=== PATIENT | male | born 1930 | race Caucasian/White ===

== ENCOUNTER 2017-06-08 14:07 | Emergency (ER) | payer MEDICARE ==
[2017-06-08] MEDS ORDERED: Sodium Chloride 0.9% 1000 ML 1,000 ML IV SCH (14:30)
--- NOTE | 2017-06-08 14:35 | ERPHSYRPT ---
- History of Present Illness Time Seen by Provider: 06/08/17 14:15 Source: patient, family Patient Subjective Stated Complaint: Pt states "I had bloodwork done this morning, Dr. Zuniga ordered it and Dr. Trevino called us and said his potassium was high and to get me to an emergency department. I feel fine." Triage Nursing Assessment: Pt alert and oriented XN 3, skin pwd. Pt ambulates with a slow upright gait, able to speak in clear full sentences. Physician History: CC: high potassium Hx: 87 y/o patient of Dr Galindo. He had potassium draw this AM which was high. Dr Trevino called him to come to ER. He has no unusual symptoms. Making normal urine. Some normal swelling. He is on aldactone and K as well as diuretics. He has chronic renal insuff but never dialysis. No palpitations, chest pain or abd pain. No V/D. Allergies/Adverse Reactions: No Known Drug Allergies Allergy (Unverified 06/08/17 14:24) Home Medications: Allopurinol 300 mg [Zyloprim 300 mg] 300 mg PO DAILY 06/08/17 [History] Atorvastatin Calcium [Lipitor] 10 mg PO DAILY 06/08/17 [History] Carvedilol [Coreg] 6.25 mg PO BID 06/08/17 [History] Clopidogrel Bisulfate [Plavix] 75 mg PO DAILY 06/08/17 [History] Famotidine [Pepcid] 20 mg PO DAILY 06/08/17 [History] Magnesium Oxide 400 mg [Mag-Ox 400] 400 mg PO DAILY 06/08/17 [History] Potassium Bicarbonate/Cit AC [Potassium 25 Meq Tablet Eff] 25 meq PO DAILY 06/08 [History] Quetiapine Fumarate [Seroquel] 50 mg PO DAILY 06/08/17 [History] Rivaroxaban [Xarelto] 10 mg PO DAILY 06/08/17 [History] Spironolactone [Aldactone] 25 mg PO DAILY 06/08/17 [History] Sucralfate 1 gm [Carafate 1 GM] 1 gm PO DAILY 06/08/17 [History] Tamsulosin HCl 0.4 mg [Flomax 0.4 MG] 0.4 mg PO DAILY 06/08/17 [History] Hx Tetanus, Diphtheria Vaccination/Date Given: Yes Hx Influenza Vaccination/Date Given: Yes Hx Pneumococcal Vaccination/Date Given: Yes Immunizations Up to Date: Yes - Review of Systems Constitutional: No Fever, No Chills, No Malaise, No Weakness Eyes: No Symptoms Ears, Nose, & Throat: No Symptoms Respiratory: No Cough, No Dyspnea Cardiac: No Chest Pain, No Palpitations, No Syncope Abdominal/Gastrointestinal: No Abdominal Pain, No Nausea, No Vomiting, No Diarrhea Genitourinary Symptoms: No Dysuria Skin: No Rash Neurological: No Headache All Other Systems: Reviewed and Negative - Past Medical History Pertinent Past Medical History: Yes Neurological History: Dementia ENT History: Cataracts Cardiac History: Coronary Artery Disease, High Cholesterol Respiratory History: COPD Endocrine Medical History: Diabetes Type I Musculoskeletal History: No Pertinent History GI Medical History: No Pertinent History History: Renal Disease Psycho-Social History: No Pertinent History Male Reproductive Disorders: No Pertinent History - Past Surgical History Past Surgical History: Yes Neuro Surgical History: No Pertinent History Cardiac: Cardiac Stent Respiratory: No Pertinent History Gastrointestinal: Cholecystectomy Genitourinary: No Pertinent History Musculoskeletal: No Pertinent History Male Surgical History: No Pertinent History - Social History Smoking Status: Never smoker Exposure to second hand smoke: Yes Drug Use: none Patient Lives Alone: No - Nursing Vital Signs Nursing Vital Signs: Initial Vital Signs Temperature 97.3 F 06/08/17 14:15 Pulse Rate 68 06/08/17 14:15 Respiratory Rate 16 06/08/17 14:15 Blood Pressure 159/83 06/08/17 14:15 O2 Sat by Pulse Oximetry 97 06/08/17 14:15 Pain Scale Pain Intensity 0 - Physical Exam General Appearance: alert Eye Exam: PERRL/EOMI Ears, Nose, Throat Exam: moist mucous membranes Neck Exam: normal inspection, non-tender, supple Respiratory Exam: normal breath sounds Cardiovascular Exam: irregular Gastrointestinal/Abdomen Exam: soft, No tenderness, No distention, No mass, No guarding Extremity Exam: normal inspection, pedal edema Neurologic Exam: alert, oriented x 3, cooperative, sensation nml, No motor deficits Skin Exam: warm, dry, No rash SpO2 Interpretation: normal SpO2: 97 Oxygen Delivery: Room Air - Course Nursing assessment & vital signs reviewed: Yes EKG Interpreted by Me: RATE (63), A-fib, prolonged QT interval (QTc 482), Right Bundle Branch Block Ordered Tests: Active Orders 24 hr Category Date Time Status Escapement Matcher STAT Care 06/08/17 14:24 Active EKG-ER Only STAT Care 06/08/17 14:23 Active IV Insertion STAT Care 06/08/17 14:23 Active BMP Stat Lab 06/08/17 14:35 Completed CBC W DIFF Stat Lab 06/08/17 14:35 Completed Manual Differential NC Stat Lab 06/08/17 14:35 Completed VENOUS BLOOD GAS Urgent Lab 06/08/17 14:38 Completed Respiratory Nebulizer STAT RT 06/08/17 15:54 Active Medication Summary Generic Name Dose Route Start Last Admin Trade Name Freq PRN Reason Stop Dose Admin Sodium Chloride 1,000 mls @ 100 mls/hr 06/08/17 14:30 06/08/17 14:53 Sodium Chloride 0.9% 1000 Ml IV 07/08/17 14:29 100 mls/hr .Q10H NANCY Administration Discontinued Medications Generic Name Dose Route Start Last Admin Trade Name Freq PRN Reason Stop Dose Admin Albuterol Sulfate 2.5 mg 06/08/17 15:54 Proventil 2.5 Mg/3 Ml Neb IH 06/08/17 15:55 STAT ONE Insulin Aspart 5 unit 06/08/17 15:54 Novolog Insulin SQ 06/08/17 15:55 STAT ONE Lab/Rad Data: Laboratory Result Diagrams 06/08/17 14:35 06/08/17 14:35 Laboratory Results 06/08/17 06/08/17 06/08/17 Range/Units 14:38 14:35 14:35 WBC 6.3 (4.0-10.5) K/mm3 RBC 4.43 (4.1-5.6) M/mm3 Hgb 13.0 (12.5-18.0) gm/dl Hct 41.0 L (42-50) % MCV 92.6 (78-100) fl MCH 29.3 (26-32) pg MCHC 31.7 L (32-36) g/dl RDW 17.3 H (11.5-14.0) % Plt Count 179 (150-450) K/mm3 MPV 11.3 H (6-9.5) fl Segmented Neutrophils 57 (36.-66.) % Band Neutrophils 2 (0.0-2.0) % Lymphocytes (Manual) 32 (24-44) % Monocytes (Manual) 6 (0.0-12.0) % Eosinophils (Manual) 3 (0.00-3.0) % Differential Comment ABNORMAL Platelet Estimate NORMAL (NORMAL) Poikilocytosis 1+ Anisocytosis 1+ VBG pH 7.37 (7.32-7.42) VBG pCO2 at Pat Temp 35 L (42-55) mm/Hg VBG pO2 at Pat Temp 44 H (25-40) mm/Hg VBG HCO3 20.2 L (22-28) meq/L VBG O2 Sat (Raquel) 86.1 L (95-100) VBG Base Excess -4.4 L (-2.0-2.0) VBG Hemoglobin 13.9 VBG Carboxyhemoglobin 2.9 (0.0-6.9) % T HGB POC Potassium 6.1 H* (3.5-5.1) Sodium 136 (136-145) mEq/L Potassium 5.9 H (3.5-5.1) mEq/L Chloride 105 (98-107) mEq/L Carbon Dioxide 20.9 L (21-32) mEq/L Anion Gap 15.6 H (5-15) MEQ/L BUN 37 H (9-20) mg/dL Creatinine 2.21 H (0.55-1.30) mg/dl Estimated GFR 30 ML/MIN Glucose 219 H (70-110) MG/DL Calcium 9.3 (8.5-10.1) mg/dL - Progress Progress Note: 06/08/17 15:57 He is now taking K 2 tabs BID as well as aldactone. He has no symptoms or complaints. Called Dr Trevino for Nav[facility]. HE advised hold K today and tomorrow and restart 1 tab daily Saturday. Will follow up check thru office M or T. Pt and agree and understand plan. Albuterol and Novolog given here. K was down to 5.9 with no acute EKG changes. Counseled pt/family regarding: lab results, diagnosis, need for follow-up - Departure Time of Disposition: 15:59 Departure Disposition: Home Clinical Impression: Hyperkalemia Condition: Fair Critical Care Time: No Referrals: MILY DUGGAN MD [Primary Care Provider] - JELENA SETHI [CONSULTING PHYSICIAN] - Instructions: Hyperkalemia Additional Instructions: Hold potassium today and tomorrow. Saturday restart one 20Meq pill daily Potassium daily. Call Dr Sethi to arrange recheck Saturday or Saturday. Return for problems or concerns.
[2017-06-08] MEDS ORDERED: Sodium Chloride 0.9% 1000 ML 1,000 ML ONE (14:43)
[2017-06-08 14:54] LABS: VBG BASE EXCESS -4.4 (-2.0-2.0); VBG CARBOXYHEMOGLOBIN 2.9 % T HGB (0.0-6.9); VBG HCO3- 20.2 meq/L (22-28); VBG HEMOGLOBIN 13.9; VBG O2 SATURATION 86.1 (95-100); VBG pH 7.37 (7.32-7.42)
[2017-06-08 14:55] LABS: VBG POTASSIUM 6.1 (3.5-5.1)
[2017-06-08 15:13] LABS: Granulocyte Absolute (ANC) 3.45 (1.4-6.9); Mean Cell Volume 92.6 fl (78-100); Mean Corpuscular Hemoglobin 29.3 pg (26-32); Mean Corpuscular Hgb Concent. 31.7 g/dl (32-36); Mean Platelet Volume 11.3 fl (6-9.5); Platelet Count 179 K/mm3 (150-450); Red Blood Count 4.43 M/mm3 (4.1-5.6); Red Cell Distribution Width 17.3 % (11.5-14.0); White Blood Count 6.3 K/mm3 (4.0-10.5)
[2017-06-08 15:22] LABS: ANION GAP 15.6 MEQ/L (5-15); Calcium 9.3 mg/dL (8.5-10.1); Carbon Dioxide 20.9 mEq/L (21-32); Creatinine 1 2.21 mg/dl (0.55-1.30); Potassium 5.9 mEq/L (3.5-5.1)
[2017-06-08 15:43] LABS: ANISOCYTOSIS 1+; BAND 2 % (0.0-2.0); Eosinophil 3 % (0.00-3.0); Lymphocytes 32 % (24-44); Monocyte 6 % (0.0-12.0); Neutrophils 57 % (36.-66.); Platelet Estimate NORMAL (NORMAL); Poikilocytosis 1+; Total Cells Counted 100
[2017-06-08] MEDS ORDERED: NovoLOG Insulin SQ ONE (15:54)
[2017-06-08] MEDS ORDERED: PROVENTIL 2.5 MG/3 ML NEB IH ONE ×2 (15:54→15:59)
[2017-06-08 16:31] VITALS: O2SAT 95
[2017-06-08] MEDS ORDERED: NovoLOG Insulin ONE (17:20)
[2017-06-08 17:30] VITALS: BP 139/45; PULSE 60
== END 2017-06-08 17:30 | disposition home or self-care (01) ==
LOC: ED 14:07
DX: E87.5 Hyperkalemia (principal); I48.91 Unspecified atrial fibrillation; I45.10 Unspecified right bundle-branch block; N18.9 Chronic kidney disease, unspecified; Z79.01 Long term (current) use of anticoagulants
CPT/HCPCS: 36000; 36415; 80048; 82805; 85025; 93005; 93041; 94640; 96360; 96361; 99284; A9270-GY

== ENCOUNTER 2018-11-05 12:24 | Emergency (ER) | payer MEDICARE ==
--- NOTE | 2018-11-05 12:54 | ERPHSYRPT ---
- History of Present Illness Time Seen by Provider: 11/05/18 12:42 Source: patient Patient Subjective Stated Complaint: pt arrived per wc able to pivot to bed, co pain to outer ascept of ankle. no swelling, strong pedal pulse, pt denies any other co's at persent time, Triage Nursing Assessment: pt here for left ankle pain since saturday, he states she gets weak and falls occassionaly,he states he now has left ankle pain, he states he is unalbe to bear full wt, pt wants said he was having chest pain , pt deines any chest pain today and does not want heart checked out, he states that was only after he fell trying to get up, he is adiment thay he does not want heart checked out, and states he has no chest pain Physician History: 88-year-old white male with history of dementia, cataracts, diabetes type 1, COPD, coronary artery disease, myocardial infarction, hyperlipidemia and renal disease. Patient arrives with complaint of pain in his left ankle symptoms for 2 days he states he fell 2 days ago. He has pain in his left ankle worse when he puts any weight on the left ankle his also states that he had some chest pain he states that last night and today on using his walker and he got short of breath and exerted himself he started having some anterior chest pain he does not have any pain at this time in his chest. He does gets short of breath with exertion. Patient is on xaralto and low-dose aspirin he is taking both of these this morning. Past medical history includes dementia, cataracts, diabetes type 1, COPD, coronary artery disease, myocardial infarction, hyperlipidemia, renal disease Past surgical history includes cataracts, cardiac stent, cholecystectomy Social history patient denies tobacco alcohol or illicit drug use Timing/Duration: other (pain in left ankle since Saturday, chest pain last night and this am. No pain now) Severity: moderate Modifying Factors: Improves With: other (pain with walking on left ankle) Associated Symptoms: shortness of breath (Short of breath with activity), chest pain (Chest pain last night and this morning with activity( using walker)), No nausea, No vomiting, No abdominal pain, No heartburn, No diaphoresis, No cough, No chills, No fever, No headaches, No loss of appetite, No malaise, No rash, No syncope, No weakness Allergies/Adverse Reactions: No Known Drug Allergies Allergy (Verified 11/05/18 12:26) Home Medications: Allopurinol 300 mg [Zyloprim 300 mg] 300 mg PO DAILY 06/08/17 [History] Atorvastatin Calcium [Lipitor] 10 mg PO DAILY 06/08/17 [History] Carvedilol [Coreg] 6.25 mg PO BID 06/08/17 [History] Clopidogrel Bisulfate [Plavix] 75 mg PO DAILY 06/08/17 [History] Famotidine [Pepcid] 20 mg PO DAILY 06/08/17 [History] Magnesium Oxide 400 mg [Mag-Ox 400] 400 mg PO DAILY 06/08/17 [History] Potassium Bicarbonate/Cit AC [Potassium 25 Meq Tablet Eff] 25 meq PO DAILY 06/08 [History] Quetiapine Fumarate [Seroquel] 50 mg PO DAILY 06/08/17 [History] Rivaroxaban [Xarelto] 10 mg PO DAILY 06/08/17 [History] Spironolactone [Aldactone] 25 mg PO DAILY 06/08/17 [History] Sucralfate 1 gm [Carafate 1 GM] 1 gm PO DAILY 06/08/17 [History] Tamsulosin HCl 0.4 mg [Flomax 0.4 MG] 0.4 mg PO DAILY 06/08/17 [History] Hx Tetanus, Diphtheria Vaccination/Date Given: No Hx Influenza Vaccination/Date Given: Yes Hx Pneumococcal Vaccination/Date Given: Yes Immunizations Up to Date: Yes - Review of Systems Constitutional: No Fever, No Chills Eyes: No Symptoms Ears, Nose, & Throat: No Symptoms Respiratory: Dyspnea on Exertion (FARFAN), No Cough, No Dyspnea Cardiac: Chest Pain Abdominal/Gastrointestinal: No Abdominal Pain, No Nausea, No Vomiting, No Diarrhea Genitourinary Symptoms: No Dysuria Musculoskeletal: Other (left ankle pain) Skin: No Rash Neurological: No Dizziness, No Focal Weakness, No Sensory Changes Psychological: No Symptoms (she does) Endocrine: No Symptoms All Other Systems: Reviewed and Negative - Past Medical History Pertinent Past Medical History: Yes Neurological History: Dementia ENT History: Cataracts Cardiac History: Coronary Artery Disease, High Cholesterol Respiratory History: COPD Endocrine Medical History: Diabetes Type I Musculoskeletal History: No Pertinent History GI Medical History: No Pertinent History History: Renal Disease Psycho-Social History: No Pertinent History Male Reproductive Disorders: No Pertinent History - Past Surgical History Past Surgical History: Yes Neuro Surgical History: No Pertinent History Cardiac: Cardiac Stent Respiratory: No Pertinent History Gastrointestinal: Cholecystectomy Genitourinary: No Pertinent History Musculoskeletal: No Pertinent History Male Surgical History: No Pertinent History - Social History Smoking Status: Never smoker Exposure to second hand smoke: No Drug Use: none Patient Lives Alone: Yes - Nursing Vital Signs Nursing Vital Signs: Initial Vital Signs Temperature 98.5 F 11/05/18 12:29 Pulse Rate 72 11/05/18 12:29 Respiratory Rate 18 11/05/18 12:29 Blood Pressure 112/66 11/05/18 12:29 O2 Sat by Pulse Oximetry 96 11/05/18 12:29 Pain Scale Pain Intensity 2 - Physical Exam General Appearance: no apparent distress, alert Eye Exam: PERRL/EOMI, eyes nml inspection Ears, Nose, Throat Exam: normal ENT inspection, TMs normal, pharynx normal, moist mucous membranes Neck Exam: normal inspection, non-tender, supple, full range of motion Respiratory Exam: normal breath sounds, lungs clear, No respiratory distress Cardiovascular Exam: regular rate/rhythm, normal heart sounds, normal peripheral pulses, capillary refill <2 sec Gastrointestinal/Abdomen Exam: soft, normal bowel sounds, No tenderness, No mass Back Exam: normal inspection, normal range of motion, No CVA tenderness, No vertebral tenderness Extremity Exam: normal range of motion, pelvis stable, other (pain with movement left ankle) Neurologic Exam: alert, oriented x 3, cooperative, shipmaster II-XII nml as tested, normal mood/affect, nml cerebellar function, nml station & gait, sensation nml, No motor deficits Skin Exam: normal color, warm, dry, No rash Lymphatic Exam: No adenopathy SpO2 Interpretation: normal (96%) SpO2: 96 - Course Nursing assessment & vital signs reviewed: Yes EKG Interpreted by Me: RATE (58 bpm), A-fib, Right Bundle Branch Block, Other ( EKG: Atrial fibrillation, 58 beats per minute, normal axis, complete right bundle block no acute ST or T wave changes. compared to June 08, 2017) - Radiology Exams Left Ankle X-ray Interpretation: Discussed w/ radiologist (x-ray left ankle: lateral soft tissue swelling, small heel spurs, and a few scattered vascular calcifications. No other bony, articular, or soft tissue abnormalities) Chest X-ray Interpretation: Discussed w/ radiologist (chest x-ray: Impression 1. Limited portable 2.new rright infrahilar infiltrate/atelectasis correlate clinically. 3 Stable cardiomegaly and evidence for old granulomatous disease) Ordered Tests: Active Orders 24 hr Category Date Time Status EKG-ER Only STAT Care 11/05/18 12:47 Active IV Insertion STAT Care 11/05/18 12:47 Active Pulse Oximetry (ED) STAT Care 11/05/18 12:47 Active Splint STAT Care 11/05/18 14:34 Active ANKLE (3 VIEWS) Stat Exams 11/05/18 12:48 Completed CHEST 1 VIEW (PORTABLE) Stat Exams 11/05/18 12:48 Completed CBC W DIFF Stat Lab 11/05/18 13:40 Completed CMP Stat Lab 11/05/18 13:40 Completed TROPONIN Q3H Lab 11/05/18 13:40 Completed TROPONIN Q3H Lab 11/05/18 16:00 Ordered TROPONIN Q3H Lab 11/05/18 19:00 Ordered TROPONIN Q3H Lab 11/05/18 22:00 Ordered TROPONIN Q3H Lab 11/06/18 01:00 Ordered Medication Summary Discontinued Medications Generic Name Dose Route Start Last Admin Trade Name Freq PRN Reason Stop Dose Admin Morphine Sulfate 2 mg 11/05/18 14:33 Morphine Sulfate 2 Mg Inj IV 11/05/18 14:34 STAT ONE Lab/Rad Data: Laboratory Result Diagrams 11/05/18 13:40 11/05/18 13:40 Laboratory Results 11/05/18 11/05/18 11/05/18 Range/Units 13:40 13:40 13:40 WBC 9.5 (4.0-10.5) K/mm3 RBC 3.93 L (4.1-5.6) M/mm3 Hgb 12.2 L (12.5-18.0) gm/dl Hct 38.5 L (42-50) % MCV 98.0 (78-100) fl MCH 31.0 (26-32) pg MCHC 31.7 L (32-36) g/dl RDW 17.3 H (11.5-14.0) % Plt Count 166 (150-450) K/mm3 MPV 11.1 H (6-9.5) fl Gran % 69.7 H (36.0-66.0) % Eos # (Auto) 0.35 (0-0.5) Absolute Lymphs (auto) 1.52 (1.0-4.6) Absolute Monos (auto) 0.97 (0.0-1.3) Lymphocytes % 15.9 L (24.0-44.0) % Monocytes % 10.2 (0.0-12.0) % Eosinophils % 3.7 (0.00-5.0) % Basophils % 0.5 (0.0-0.4) % Absolute Granulocytes 6.64 (1.4-6.9) Basophils # 0.05 (0-0.4) Sodium 141 (137-145) mmol/L Potassium 4.7 (3.5-5.1) mmol/L Chloride 106 (98-107) mmol/L Carbon Dioxide 24 (22-30) mmol/L Anion Gap 16.3 H (5-15) MEQ/L BUN 46 H (9-20) mg/dL Creatinine 1.72 H (0.66-1.25) mg/dL Estimated GFR 40.3 ML/MIN Glucose 194 H (74-106) mg/dL Calcium 9.6 (8.4-10.2) mg/dL Total Bilirubin 1.00 (0.2-1.3) mg/dL AST 24 (17-59) U/L ALT 17 (0-50) U/L Alkaline Phosphatase 101 (38-126) U/L Troponin I 0.042 H* (0.000-0.034) ng/mL Serum Total Protein 7.3 (6.3-8.2) g/dL Albumin 3.8 (3.5-5.0) g/dL - Progress Progress: improved Progress Note: 11/05/18 14:24 Patient's troponin is elevated, X-ray left ankle no fracture positive soft tissue swelling. Patient did receive aspirin 81 mg this morning also Zaroxolyn 10 mg this morning. Will contact [facility] for possible transfer. Impression 1 chest pain. 2. Left ankle sprain. 11/05/18 14:34 Patient has been on her except did for transfer to [facility]. Impression 1 chest pain. 2 elevated troponin. 3. Left ankle sprain. 11/05/18 14:40 - Departure Departure Disposition: Transfer ([facility]) Clinical Impression: Elevated troponin Chest pain Qualifiers: Chest pain type: unspecified Qualified Code(s): R07.9 - Chest pain, unspecified Left ankle sprain Qualifiers: Encounter type: initial encounter Involved ligament of ankle: unspecified ligament Qualified Code(s): S93.402A - Sprain of unspecified ligament of left ankle, initial encounter Condition: Fair Critical Care Time: No Referrals: MILY DUGGAN MD [ACTIVE STAFF] -
--- NOTE | 2018-11-05 13:15 | XRAY ---
Indication: Pain following fall. Comparison: None 3 views of the left ankle demonstrates lateral soft tissue swelling, small heel spurs, and diffuse scattered vascular calcifications. No other bony, articular, or soft tissue abnormalities.
--- NOTE | 2018-11-05 13:18 | XRAY ---
Indication: Chest pain on exertion. Comparison: October 01, 2016. Portable chest limited as the left lung base not completely included in the [id number]. New right infrahilar infiltrate versus atelectasis. Remaining lungs clear. Stable cardiomegaly and chunky AP window calcified nodes. Bony thorax again demonstrates osteopenia and degenerative changes. Impression: 1. Limited portable chest exam. 2. New right infrahilar infiltrate/atelectasis. Correlate clinically. 3. Stable cardiomegaly and evidence for old granulomatous disease.
[2018-11-05 13:52] LABS: BASOPHIL % 0.5 % (0.0-0.4); Basophil (Absolute #) 0.05 (0-0.4); Eosinophil % 3.7 % (0.00-5.0); Eosinophil (Absolute #) 0.35 (0-0.5); Granulocyte Absolute (ANC) 6.64 (1.4-6.9); Granulocytes % 69.7 % (36.0-66.0); Hematocrit 38.5 % (42-50); Hemoglobin 12.2 gm/dl (12.5-18.0); Lymphocyte (Absolute #) 1.52 (1.0-4.6); Lymphocytes % 15.9 % (24.0-44.0); Mean Corpuscular Hgb Concent. 31.7 g/dl (32-36); Mean Platelet Volume 11.1 fl (6-9.5); Monocyte (Absolute #) 0.97 (0.0-1.3); Monocytes % 10.2 % (0.0-12.0); Platelet Count 166 K/mm3 (150-450); Red Blood Count 3.93 M/mm3 (4.1-5.6); Red Cell Distribution Width 17.3 % (11.5-14.0); White Blood Count 9.5 K/mm3 (4.0-10.5)
[2018-11-05 14:06] LABS: ALBUMIN 3.8 g/dL (3.5-5.0); ANION GAP 16.3 MEQ/L (5-15); Calcium 9.6 mg/dL (8.4-10.2); Creatinine 1 1.72 mg/dL (0.66-1.25); Potassium 4.7 mmol/L (3.5-5.1); Total Protein 7.3 g/dL (6.3-8.2)
[2018-11-05 14:18] VITALS: BP 131/57
[2018-11-05] MEDS ORDERED: MORPHINE SULFATE 2 MG INJ IV ONE (14:33)
[2018-11-05 15:32] VITALS: PULSE 68; O2SAT 98
[2018-11-05] MEDS ORDERED: MORPHINE SULFATE 2 MG INJ ONE (15:34)
== END 2018-11-05 15:32 | disposition short-term general hospital (02) ==
LOC: ED 12:24
DX: R94.39 Abnormal result of other cardiovascular function study (principal); R07.9 Chest pain, unspecified; S93.402A Sprain of unspecified ligament of left ankle, initial encounter; R07.89 Other chest pain; E78.5 Hyperlipidemia, unspecified; Z79.01 Long term (current) use of anticoagulants; J44.1 Chronic obstructive pulmonary disease with (acute) exacerbation; I25.10 Atherosclerotic heart disease of native coronary artery without angina pectoris; Z79.899 Other long term (current) drug therapy; E78.00 Pure hypercholesterolemia, unspecified
CPT/HCPCS: 36000; 36415; 71045; 73610; 80053; 84484; 85025; 93005; 99285; J2270

== ENCOUNTER 2019-05-11 15:26 | Emergency (ER) | payer MEDICARE ==
[2019-05-11] MEDS ORDERED: MORPHINE SULFATE 4 MG INJ IM ONE (15:37)
[2019-05-11] MEDS ORDERED: MORPHINE SULFATE 4 MG INJ ONE (15:46)
--- NOTE | 2019-05-11 16:00 | ERPHSYRPT ---
- History of Present Illness Time Seen by Provider: 05/11/19 15:40 Source: patient Exam Limitations: no limitations Patient Subjective Stated Complaint: Pt states "I was walking out front to get some labs done and my legs just gave way and I fell and hurt my arm. My legs just give out sometimes." Triage Nursing Assessment: Pt presented alert and oriented X 3, skin pwd Pt ambulates with an upright steady gait, able to speak in clear full sentences pt in no apprent respiratory distress. Physician History: Fell walking into hospital laboratory, injury his right shoulder. Now with severe pain at the right shoulder only. He denies any head injury or neck injury, loss of consciousness, or any pain to right elbow, right wrist, or right hand and fingers. No pain at the left shoulder or upper extremity. Occurred: just prior to arrival Reason for Fall: tripped Injuries/Pain Location: upper extremity (right side only) Loss of Consciousness: no loss of consciousness Quality: aching, throbbing Severity of Pain-Max: severe Severity of Pain-Current: severe Modifying Factors: Improves With: immobilization. Worsens With: movement Associated Symptoms (Fall): No abdominal pain, No back pain, No confusion, No chest pain, No dizziness, No extremity injury, No headache, No lightheadedness, No muscle spasms, No nausea, No neck pain, No ringing in ears, No seizures, No shortness of breath, No slurred speech, No vomiting, No vision changes Allergies/Adverse Reactions: No Known Drug Allergies Allergy (Verified 11/05/18 12:26) Home Medications: Allopurinol 300 mg [Zyloprim 300 mg] 300 mg PO DAILY 06/08/17 [History] Atorvastatin Calcium [Lipitor] 10 mg PO DAILY 06/08/17 [History] Carvedilol [Coreg] 6.25 mg PO BID 06/08/17 [History] Famotidine [Pepcid] 20 mg PO DAILY 06/08/17 [History] Magnesium Oxide 400 mg [Mag-Ox 400] 400 mg PO DAILY 06/08/17 [History] Potassium Bicarbonate/Cit AC [Potassium 25 Meq Tablet Eff] 25 meq PO DAILY 06/08 [History] Quetiapine Fumarate [Seroquel] 50 mg PO DAILY 06/08/17 [History] Rivaroxaban [Xarelto] 10 mg PO DAILY 06/08/17 [History] Spironolactone [Aldactone] 25 mg PO DAILY 06/08/17 [History] Sucralfate 1 gm [Carafate 1 GM] 1 gm PO DAILY 06/08/17 [History] Tamsulosin HCl 0.4 mg [Flomax 0.4 MG] 0.4 mg PO DAILY 06/08/17 [History] Hx Tetanus, Diphtheria Vaccination/Date Given: Yes Hx Influenza Vaccination/Date Given: Yes Hx Pneumococcal Vaccination/Date Given: Yes Immunizations Up to Date: Yes - Review of Systems Constitutional: No Fever, No Chills Eyes: No Eye Pain, No Tearing, No Vision Changes Ears, Nose, & Throat: No Nose Pain, No Epistaxis, No Mouth Swelling, No Loose Teeth, No Painful Swallowing Respiratory: No Cough, No Dyspnea Cardiac: No Chest Pain, No Edema, No Syncope Abdominal/Gastrointestinal: No Abdominal Pain, No Nausea, No Vomiting, No Diarrhea, No Hematemesis, No Hematochezia, No Melena Genitourinary Symptoms: No Dysuria, No Hematuria, No Flank Pain Musculoskeletal: Fall, Joint Pain (right shoulder only), No Back Pain, No Neck Pain Skin: No Rash Neurological: No Dizziness, No Focal Weakness, No Headache, No Parasthesia, No Seizure, No Sensory Changes, No Tremors Psychological: No Symptoms Endocrine: No Symptoms All Other Systems: Reviewed and Negative - Past Medical History Pertinent Past Medical History: Yes Neurological History: Dementia ENT History: Cataracts Cardiac History: Coronary Artery Disease, High Cholesterol Respiratory History: COPD Endocrine Medical History: Diabetes Type I Musculoskeletal History: No Pertinent History GI Medical History: No Pertinent History History: Renal Disease Psycho-Social History: No Pertinent History Male Reproductive Disorders: No Pertinent History - Past Surgical History Past Surgical History: Yes Neuro Surgical History: No Pertinent History Cardiac: Cardiac Stent Respiratory: No Pertinent History Gastrointestinal: Cholecystectomy Genitourinary: No Pertinent History Musculoskeletal: No Pertinent History Male Surgical History: No Pertinent History - Social History Smoking Status: Never smoker Exposure to second hand smoke: Yes Drug Use: none Patient Lives Alone: No - Nursing Vital Signs Nursing Vital Signs: Initial Vital Signs Temperature 98.2 F 05/11/19 15:27 Pulse Rate 62 05/11/19 15:27 Respiratory Rate 22 05/11/19 15:27 Blood Pressure 130/68 05/11/19 15:27 O2 Sat by Pulse Oximetry 95 05/11/19 15:27 Pain Scale Pain Intensity 8 - Purchase Coma Score Best Eye Response (Nathan): (4) open spontaneously Best Verbal Response (Nathan): (5) oriented Best Motor Response (Purchase): (6) obeys commands Nathan Total: 15 - Physical Exam General Appearance: no apparent distress, alert Head Injury: no evidence of injury, No active bleeding, No Babin's Sign, No contusions, No ecchymosis, No flap, No lacerations, No raccoon eyes, No swelling , No tenderness Eye Exam: PERRL/EOMI, eyes nml inspection, No scleral icterus, No pale conjunctivae ENT Exam: airway nml, hearing grossly normal, No evidence of ENT injury, No dental injury, No nml ext.inspection, No clear fluid (ears), No clear fluid ( nose), No midface instability, No decreased hearing, No hemotympanum, No TM obscured by wax, No clotted nasal blood, No malocclusion, No oral injury Neck Exam: supple, trachea midline, full range of motion, normal alignment, normal inspection, No limited range of motion, No paraspinous muscle tender, No pain on movement of neck, No stiff neck, No tenderness, No Brudzinski Respiratory/Chest Exam: normal breath sounds, No chest tenderness, No respiratory distress, No rales, No rhonchi, No wheezing, No accessory muscle use Cardiovascular Exam: normal heart sounds, regular rate/rhythm, normal peripheral pulses Gastrointestinal Exam: soft, No tenderness, No distention, No guarding, No ecchymosis, No pulsatile mass, No rebound Back Exam: normal inspection, No CVA tenderness, No vertebral tenderness Extremity Exam: normal inspection, normal range of motion, capillary refill <3 sec, pelvis stable, limited range of motion (right shoulder only), pain with movement (right shoulder only), tenderness (right shoulder only), No deformities , No lacerations, No hip tenderness, No motor deficit, No sensory deficit Neurologic Exam: alert, oriented x 3, cooperative, cut file clerk II-XII nml as tested, normal mood/affect, sensation nml, No motor deficits Skin Exam: normal color, warm, dry SpO2 Interpretation: normal SpO2: 95 O2 Delivery: Room Air - Course Nursing assessment & vital signs reviewed: Yes - Radiology Exams Right Shoulder X-ray Interpretation: Interpreted by me, Reviewed by me, Other (Per Radiolgist Interpretation: muscle mildly overriding oblique fracture of the proximal right humeral shaft with lateral displacement measuring 2.2 cm on the AP and internal rotation view. No malalignment seen on the AP images. There is no dislocation of the right shoulder joint. moderate degenerative changes are seen about the right shoulder girdle at the right glenohumeral joint. ) - CT Exams Head CT Interpretation: Tele-radiologist Report, No Fracture, No/Intracranial Hemorrhag, Other (Per Radiologist Interpretation: nno acute intracranial injury with no sense of mass, hemorrhage, ventriculomegaly, paranasal sinus disease, mastoid effusion. Upper left posterior lateral scalp swelling.) Ordered Tests: Active Orders 24 hr Category Date Time Status ACCUCHECK [Accucheck] STAT Care 05/11/19 16:01 Active Sling Application STAT Care 05/11/19 16:55 Active HEAD WITHOUT CONTRAST [CT] Stat Exams 05/11/19 17:20 Taken SHOULDER Stat Exams 05/11/19 16:00 Completed CBC Stat Lab 05/11/19 15:37 Completed CMP Stat Lab 05/11/19 16:00 Completed CREATININE,URINE RANDOM Stat Lab 05/11/19 Uncollected MICROALBUMIN,RANDOM Stat Lab 05/11/19 Ordered UA W/RFX UR CULTURE Stat Lab 05/11/19 15:39 Uncollected Uric Acid Stat Lab 05/11/19 16:00 Completed Medication Summary Discontinued Medications Generic Name Dose Route Start Last Admin Trade Name Freq PRN Reason Stop Dose Admin Morphine Sulfate 4 mg 05/11/19 15:37 05/11/19 15:47 Morphine Sulfate 4 Mg Inj IM 05/11/19 15:38 4 mg STAT ONE Administration Morphine Sulfate Confirm 05/11/19 15:46 Morphine Sulfate 4 Mg Inj Administered 05/11/19 15:47 Dose 4 mg .ROUTE .STK-MED ONE Ondansetron HCl 4 mg 05/11/19 17:58 05/11/19 18:00 Zofran Odt 4 Mg PO 05/11/19 17:59 4 mg STAT ONE Administration Ondansetron HCl Confirm 05/11/19 17:59 Zofran Odt 4 Mg Administered 05/11/19 18:00 Dose 4 mg .ROUTE .STK-MED ONE Lab/Rad Data: Laboratory Result Diagrams 05/11/19 15:37 05/11/19 16:00 Laboratory Results 05/11/19 05/11/19 05/11/19 Range/Units Unknown 16:00 16:00 WBC (4.0-10.5) K/mm3 RBC (4.1-5.6) M/mm3 Hgb (12.5-18.0) gm/dl Hct (42-50) % MCV (78-100) fl MCH (26-32) pg MCHC (32-36) g/dl RDW (11.5-14.0) % Plt Count (150-450) K/mm3 MPV (6-9.5) fl Sodium 142 (137-145) mmol/L Potassium 5.9 H (3.5-5.1) mmol/L Chloride 108 H (98-107) mmol/L Carbon Dioxide 24 (22-30) mmol/L Anion Gap 15.5 H (5-15) MEQ/L BUN 45 H (9-20) mg/dL Creatinine 2.21 H (0.66-1.25) mg/dL Estimated GFR 30.1 ML/MIN Glucose 140 H (74-106) mg/dL Uric Acid 5.4 (3.5-7.2) mg/dL Calcium 9.6 (8.4-10.2) mg/dL Total Bilirubin 0.70 (0.2-1.3) mg/dL AST 22 (17-59) U/L ALT 13 (0-50) U/L Alkaline Phosphatase 131 H (38-126) U/L Serum Total Protein 7.6 (6.3-8.2) g/dL Albumin 3.9 (3.5-5.0) g/dL 25-OH Vitamin D Total 43.0 (30-100) ng/mL 05/11/19 Range/Units 15:37 WBC 7.0 (4.0-10.5) K/mm3 RBC 3.80 L (4.1-5.6) M/mm3 Hgb 11.4 L (12.5-18.0) gm/dl Hct 37.6 L (42-50) % MCV 98.9 (78-100) fl MCH 30.0 (26-32) pg MCHC 30.3 L (32-36) g/dl RDW 18.2 H (11.5-14.0) % Plt Count 145 L (150-450) K/mm3 MPV 11.5 H (6-9.5) fl Sodium (137-145) mmol/L Potassium (3.5-5.1) mmol/L Chloride (98-107) mmol/L Carbon Dioxide (22-30) mmol/L Anion Gap (5-15) MEQ/L BUN (9-20) mg/dL Creatinine (0.66-1.25) mg/dL Estimated GFR ML/MIN Glucose (74-106) mg/dL Uric Acid (3.5-7.2) mg/dL Calcium (8.4-10.2) mg/dL Total Bilirubin (0.2-1.3) mg/dL AST (17-59) U/L ALT (0-50) U/L Alkaline Phosphatase (38-126) U/L Serum Total Protein (6.3-8.2) g/dL Albumin (3.5-5.0) g/dL 25-OH Vitamin D Total (30-100) ng/mL - Progress Progress: improved Progress Note: 05/11/19 16:54 Pain is improved. Patient will be placed in a sling and swathe. 05/11/10 18:24, patient was discussed with Dr Baig, emergency department attending at [facility] in [place], [place]. 05/11/19 18:30, spoke with Dr Nixon, Trauma Surgeon at [facility] in [place], [place]. Dr Nixon agreed with transfer of the patient. 05/11/10 18:32, patient was accepted for transfer to the Emergency Department by Dr Baig, emergency department attending at [facility] in [place], [place].. Discussed with Dr.: Other (@17:15, spoke with Dr Nixon, Orthopedic Surgeon at [facility]. Dr Nixon would like a CT scan of the Head since patient is on Xarelto, and if negative CT scan, patient most likely can be managed non-operatively as an outpatient, but Dr Nixon will look at the films also.) Counseled pt/family regarding: diagnosis, need for follow-up, rad results - Departure Departure Disposition: Transfer ([facility] in [facility]) Clinical Impression: Elevated blood pressure reading without diagnosis of hypertension, Superficial swelling of scalp Fracture of humeral shaft, right, closed Qualifiers: Encounter type: initial encounter Fracture morphology: oblique Fracture alignment: displaced Qualified Code(s): S42.331A - Displaced oblique fracture of shaft of humerus, right arm, initial encounter for closed fracture Condition: Good Critical Care Time: No Referrals: THEA SALAS [Primary Care Provider] - 05/12/19 Instructions: Upper Arm Fracture, Shoulder Fracture (DC) Additional Instructions: Discharge/Care Plan BERTRAM TY was seen on 05/11/19 in the Emergency Room. The patient was counseled regarding Diagnosis, Imaging studies, need for follow up in the hospital. Prescriptions given: [employer] 5/325mg 1 PO Q6 hours Disp: 8, 0 RF Discharge Note I have spoken with the patient and family. I have explained the patient's condition, diagnosis and treatment plan based on the information available to me at this time. I have answered the patient's and family's questions and addressed any concerns. The patient and family have a good understanding of the patient's diagnosis, condition and treatment plan as can be expected at this point. The vital signs have been stable. The patient's condition is stable and appropriate for transfer from the emergency department. The patient will pursue further outpatient evaluation with the primary care physician or other designated or consulting physician as outlined in the discharge instructions. The patient and family are agreeable to this plan of care and follow-up instructions have been explained in detail. The patient and family have received these instruction. Prescriptions: Hydrocodone/APAP 5-325 Tab^^^ [[employer] 5-325 Tablet^^^] 1 tab PO Q6HPRN PRN #8 tablet MDD 6 PRN Reason: Pain
[2019-05-11 16:20] LABS: Hematocrit 37.6 % (42-50); Hemoglobin 11.4 gm/dl (12.5-18.0); Mean Cell Volume 98.9 fl (78-100); Mean Corpuscular Hgb Concent. 30.3 g/dl (32-36); Mean Platelet Volume 11.5 fl (6-9.5); Platelet Count 145 K/mm3 (150-450); Red Cell Distribution Width 18.2 % (11.5-14.0)
--- NOTE | 2019-05-11 16:28 | XRAY ---
Exam: Two-view right shoulder series from 05/11/2019. Comparison: None. Indication: Right shoulder pain due to fall in 89-year-old male. Findings: AP internal rotation and AP external rotation images of the right shoulder were obtained. There is a mildly overriding oblique fracture of the proximal right humeral shaft with 2.2 cm lateral displacement on the AP internal rotation view. No malalignment is seen on the AP images. A transthoracic lateral view was not obtained. There is no dislocation of the right shoulder joint. 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 This can be seen on a chest film from 11/05/2018 as well. There are mild degenerative changes about the right glenohumeral joint. The visualized right lung appears intact. Impression: 1. Mildly overriding oblique fracture of the proximal right humeral shaft with lateral displacement, as discussed above. No malalignment is seen, as viewed in the AP projections. 2. Moderate degenerative changes are seen about the right shoulder girdle, as discussed above.
[2019-05-11 16:30] LABS: ALBUMIN 3.9 g/dL (3.5-5.0); ANION GAP 15.5 MEQ/L (5-15); BILIRUBIN,TOTAL 0.7 mg/dL (0.2-1.3); Calcium 9.6 mg/dL (8.4-10.2); Creatinine 1 2.21 mg/dL (0.66-1.25); Potassium 5.9 mmol/L (3.5-5.1); Total Protein 7.6 g/dL (6.3-8.2)
[2019-05-11 17:03] VITALS: BP 112/72
[2019-05-11] MEDS ORDERED: ZOFRAN ODT 4 MG PO ONE ×2 (17:58→18:58)
[2019-05-11] MEDS ORDERED: ZOFRAN ODT 4 MG ONE (17:59)
[2019-05-11 18:25] VITALS: PULSE 69
[2019-05-11 18:43] VITALS: O2SAT 95
--- NOTE | 2019-05-12 14:16 | XRAY ---
Exam: CT of the head without IV contrast from 05/11/2019. CTDI: 42.84 mGy. Comparison: CT of the head without IV contrast from 07/14/2009. Indication: 89-year-old male with fall/injury, blunt trauma, patient has history of "blood thinners". Technique: Non-IV contrast axial images were obtained through the head. Reconstructed coronal and sagittal images were created and reviewed. Findings: There is diffuse prominence of the ventricles and moderate enlargement of the cortical sulci and basilar cisterns consistent with generalized atrophy. This is about the same or slightly more prominent as compared to 07/14/2009. No focal mass effect or midline shift is seen. I see no evidence of acute intracranial bleed or abnormal extra-axial fluid collection. Extensive bilateral basal ganglia calcification is again seen. This was noted on the prior study from 07/14/2009 as well. I see no low attenuation territorial infarct. Only subtle scattered bilateral degenerative micro-ischemic changes are seen within the periventricular and subcortical white matter. There is a mild extracranial soft tissue swelling overlying the upper posterior lateral left parietal bone consistent with a scalp hematoma. No underlying fracture of the calvarium of the skull is seen. Dense atherosclerotic calcification is seen within both carotid siphons. Some vascular calcification is seen within both distal vertebral arteries. There is some deviation of the nasal septum toward the right. The visualized paranasal sinuses are essentially clear. The mastoid air cells appear unremarkable. Impression: 1. No acute intracranial bleed is seen. 2. However, there is a mild scalp hematoma in the upper posterior lateral left parietal region. No underlying fracture of the calvarium of the skull is seen. 3. Atrophic changes with evidence of only minimal degenerative white matter small vessel ischemia.
== END 2019-05-11 18:59 | disposition short-term general hospital (02) ==
LOC: ED 15:26
DX: S42.331A Displaced oblique fracture of shaft of humerus, right arm, initial encounter for closed fracture (principal); R30.0 Dysuria; R03.0 Elevated blood-pressure reading, without diagnosis of hypertension; R22.0 Localized swelling, mass and lump, head; W18.39XA Other fall on same level, initial encounter; Y93.01 Activity, walking, marching and hiking; Y92.238 Other place in hospital as the place of occurrence of the external cause
CPT/HCPCS: 36415; 70450; 73030; 80053; 82306; 82962; 83970; 84550; 85027; 96372; 99285; J2270; Q0162